=== PATIENT | male | born 1950 | race African-American/Black ===

== ENCOUNTER 2016-07-03 18:58 | Inpatient (IN) | payer MEDICARE ==
--- NOTE | ~2016-07-03 | HP ---
History And Physical [facility] [address] [place]. [address] NAME: PAVEL PERALTA : 48 STATUS : ADM Lisa PAT#: [id number] AGE: 66 ADM/REG DATE : 07/03/16 MR#: [id number] REPORT SERV DATE: 07/04/16 DICTATED BY: MIRNA VILLALOBOS DATE: 07/03/16 REPORT STATUS : Draft TRANSCRIBED BY: MODL DATE: 07/03/16 DATE OF ADMISSION: 07/03/2016 CHIEF COMPLAINT: Fever, cough, nausea, vomiting, and chest pain. HISTORY OF PRESENT ILLNESS: This is a 66-year-old male, who lives by himself and has a history of hypertension, diabetes mellitus, who presents to the Emergency Room at [facility] with the above-mentioned complaint. History is obtained from the patient, his two sisters who are at bedside, and reviewing data available on the [employer] system. Mr. Peralta is a 66-year-old very pleasant patient at the [facility] in [place], [place], who has been doing poorly since last Saturday. So, for the last three days, he has had fever, nausea, vomiting, unable to keep anything down including fluids, has burning chest pain substernally and has also had a cough productive of greenish yellowish sputum. His family decided to bring him in today because he was doing poorly. He appeared dehydrated and they knew he was not going to do well at home. In the emergency room, initial workup revealed leukocytosis with a procalcitonin level of 6.22. He had acute kidney injury, although we do not know if he had chronic kidney disease. He also had intractable nausea and vomiting requiring intravenous antiemetics. He was started on IV fluids and Hospitalist Service was asked to admit him for further evaluation and treatment. At the time of my evaluation, he denied any chest pain at this time, denied any palpitations or orthopnea. He did have a cough productive of greenish to yellowish sputum. Denied any denied any hemoptysis. He denied any night sweats or weight loss recently. No history of recent falls and loss of consciousness. Did have fever, although he did not measure it and did not report any chills. He did have intractable nausea and vomiting, vomitus was mostly clear of food that he ate bilious. He denied any hematemesis. No history of recent diarrhea. He did not have any hematochezia or hematuria recently. He did not have any increased frequency of micturition or burning while passing urine. No other history of recent travel or exposures other than those mentioned above. PAST MEDICAL HISTORY: Significant for history of diabetes mellitus type 2 on insulin and metformin, history of hypertension. According to the family, he was on lisinopril, which was discontinued about a year ago after he had an episode with hypercalcemia. According to them, that issue has resolved. SOCIAL HISTORY: He does not smoke, drink, or use recreational drugs. FAMILY HISTORY: Noncontributory. MEDICATIONS: At home were reviewed by me in the chart today and reordered by me. REVIEW OF SYSTEMS: As in history of present illness. All other systems were reviewed in detail and are quite unremarkable. History And Physical [address] [address] NAME: PAVEL PERALTA : 48 STATUS : ADM Lisa PAT#: [id number] AGE: 66 ADM/REG DATE : 07/03/16 MR#: [id number] REPORT SERV DATE: 07/04/16 DICTATED BY: MIRNA VILLALOBOS DATE: 07/03/16 REPORT STATUS : Draft TRANSCRIBED BY: CARLOS DATE: 07/03/16 PHYSICAL EXAMINATION: GENERAL: This is a pleasant 66-year-old, not in any acute distress. HEENT: His head is atraumatic, normocephalic. He is alert, awake, oriented to time, place, and person. Pupils are equal, reacting to light and accommodating. External ocular muscles are intact. Membranes are moist and pink. Sclera is nonicteric. NECK: Supple with no jugular venous distention, lymphadenopathy, or thyromegaly. LUNGS: Clear to auscultation with no wheezes, rubs, or crackles. HEART: Heart sounds were regular with no murmurs, rubs, or gallops. ABDOMEN: Soft, nontender. Bowel sounds are present. There was no organomegaly. EXTREMITIES: Showed no cyanosis, clubbing, or edema. NEUROLOGIC: Grossly intact. No focal sensory or motor deficits. He was able to move all four extremities. Higher functions appear intact. VITAL SIGNS: His temperature was 99.4, pulse 106, respirations 22 per minute, blood pressure was 144/67, oxygen saturations were 97%, breathing 2 L of oxygen via nasal cannula. LABORATORY DATA: Reviewed on the [employer] system showed a procalcitonin of 6.22. Sodium was 139, potassium 3.8, chloride 102, CO2 of 25, BUN was 41 with a creatinine of 2.37, this was 1.29 in July of 2011. Since then, he has not had any records here. His glucose was 219. AST, ALT, and lipase were within normal limits. His lactate was 1.8. Troponin was 0.05. His CBC showed a white blood cell count of 15,200, hemoglobin was 12.5, hematocrit 37.4, and platelet count was 228,000. His MCV was 83.1. Urinalysis showed 6 wbc's and rare bacteria. Nitrite was negative. Leukocyte esterase was negative. Films of the chest x-ray were reviewed by me on the PACS today and interpreted by me. Per my interpretation, there was normal bony architecture with no cardiomegaly. Lung wahl showed no acute infiltrates or effusions. A 12-lead EKG done in emergency room was reviewed and interpreted by me. There was normal sinus rhythm with a rate of [address] elevations or depressions. IMPRESSION: 1. Febrile illness. 2. Acute bronchitis. 3. Leukocytosis. 4. Possible urinary tract infection. 5. Sepsis. 6. Acute kidney injury versus chronic kidney disease. 7. Intractable nausea and vomiting. 8. Diabetes mellitus with hyperglycemia. 9. Hypertension. 10.Hypercholesterolemia. PLAN: We will admit Mr. Peralta to the Hospitalist Service with telemetry for a 24-hour observation period. We will start him on IV fluids for volume resuscitation and check his chemistry in the morning. We will also start him on empiric IV antibiotics for his presumed urinary tract infection, although I do not see any other signs of infection at this time. We will follow Gram stains, cultures, and proceed accordingly. We will also follow serial troponin levels to rule out any acute coronary syndrome for his chest pain. We will also provide him with Zofran and Phenergan intravenously for nausea and vomiting and see if he History And Physical [address] [address] NAME: PAVEL PERALTA : 48 STATUS : ADM Lisa PAT#: [id number] AGE: 66 ADM/REG DATE : 07/03/16 MR#: [id number] REPORT SERV DATE: 07/04/16 DICTATED BY: MIRNA VILLALOBOS DATE: 07/03/16 REPORT STATUS : Draft TRANSCRIBED BY: CARLOS DATE: 07/03/16 can tolerate any food. He will be on NovoLog insulin per sliding scale for his blood sugar control and we will also check his A1c. For his cough, I will provide him some Robitussin with guaifenesin and continue his supplemental oxygen therapy. We will continue all other medications at this time. Hold his diuretics tonight. We will be re-evaluated in the morning by attending physician. Meanwhile, we will also place him on unfractionated heparin subcutaneously for DVT prophylaxis. Please see today's orders for all the details. I have discussed the above plans with the patient and his two sisters at bedside. Their questions were answered and they are agreeable to the above recommendations. Hospitalist Service will be following Mr. Peralta during his stay here. /CARLOS Mirna Villalobos M.D. / [id number] CC: Junaid Cabrera MD
--- NOTE | ~2016-07-03 | DS ---
Discharge Summary [facility] [address] [place]. [address] NAME: PAVEL FERGUSON : 48 STATUS : DIS IN PAT#: [id number] AGE: 66 ADM/REG DATE : 07/04/16 MR#: [id number] REPORT SERV DATE: 07/06/16 DICTATED BY: KENNEY CUMMINGS DATE: 07/05/16 REPORT STATUS : Draft TRANSCRIBED BY: CARLOS DATE: 07/05/16 ADMISSION DATE: 07/04/2016 DISCHARGE DATE: 07/05/2016 DISCHARGE DIAGNOSES: 1. Systemic inflammatory response syndrome. 2. Acute bronchitis/early pneumonia. 3. Insulin-dependent diabetes mellitus 2. 4. Gastroenteritis, viral. 5. Metabolic acidosis secondary to renal failure. 6. Elevated troponin secondary to renal failure. 7. Acute on chronic kidney disease stage 3. 8. Hypertension. 9. Hyperlipidemia. 10.Glaucoma. 11.Anemia of chronic disease. DISCHARGE MEDICATIONS: Include: 1. Lipitor 40 mg p.o. daily. 2. Cosopt twice a day in both eyes. 3. Insulin aspart 14 subcu at breakfast. 4. Insulin aspart 33 units subcu at lunch. 5. Insulin aspart 30 units subcu supper. 6. Lantus 30 units at bedtime. 7. Toprol-XL 25 mg p.o. daily. 8. Procardia XL 90 mg p.o. daily. 9. DuoNebs 0.5/3 mg inhaled every six hours p.r.n. wheezing. 10.Levaquin 750 mg p.o. q.48 hours. 11.Aspirin 81 mg p.o. daily. 12.Prednisone taper as directed. 13.ProAir HFA 90 mcg one to two puffs every four to six hours p.r.n. 14.Hydrochlorothiazide 12.5 mg p.o. daily. DISPOSITION AND FOLLOWUP: The is patient medically stable for discharge. Follow up with primary care physician in one week. History and physical per initial assessment. DISCHARGE VITALS: Temperature 98, heart rate 77, blood pressure 151/76, respiratory rate 16, O2 saturation 95 on room air. DISCHARGE LABS: WBC 4.7, hemoglobin 11.1, hematocrit 33.4, platelets 198. Sodium 144, potassium 4, chloride 111, bicarb 24, lactate 1.8. BUN 23, creatinine 0.36, glucose 143, troponin 0.06. IMAGING: Chest x-ray PA and lateral, impression, mild elevation right hemidiaphragm with right basilar atelectasis or early infiltrate. Echo results pending. Discharge Summary [facility] [address] [place]. [address] NAME: PAVEL FERGUSON : 48 STATUS : DIS IN PAT#: [id number] AGE: 66 ADM/REG DATE : 07/04/16 MR#: [id number] REPORT SERV DATE: 07/06/16 DICTATED BY: KENNEY CUMMINGS DATE: 07/05/16 REPORT STATUS : Draft TRANSCRIBED BY: CARLOS DATE: 07/05/16 HOSPITAL COURSE: This is a 66-year-old man with past medical history of insulin-dependent diabetes type 2, chronic kidney disease stage 3, comes into the ED complaining of fever, cough, nausea, vomiting, and chest pain. The patient was evaluated, had evidence of SIRS without evidence of sepsis, as no clear infection noted. The patient was admitted and started on antibiotics. The patient was started on IV fluids. Renal function back at baseline on the day of discharge with IV fluids. Troponins were cycled and stayed at 0.06 most likely secondary to renal failure. No complaints of chest pain. 2D echo pending rule out any evidence of wall motion abnormality. By second day of admission, leukocytosis has resolved. The patient did have some evidence of acute bronchitis early pneumonia. Kept on antibiotics. DuoNeb started. By second day of admission, the patient's clinical status much improved. The patient wanted to go home. SIRS resolved. Metabolic acidosis resolved with improvement of renal failure and sodium bicarb tablets. EKG did not have any evidence of acute coronary syndrome. The patient medically stable for discharge. Vitals stable. Discharge on oral antibiotics. DuoNebs q.6 hours p.r.n./ProAir HFA p.r.n. wheezing. Prednisone taper as directed. The patient instructed to take all medications as described above. Follow up with primary care physician in one week. Once echo reviewed and no wall motion abnormality, the patient will be medically stable for discharge. Total time for discharge planning, 35 minutes. ADRIÁN/CARLOS Junaid Cabrera MD / [id number] CC: Junaid Cabrera MD
[2016-07-03 14:52] LABS: BASOPHILS 0.1 %; BASOPHILS ABSOLUTE 0.02 10/3/uL (0.0-0.16); EOSINOPHILS 0 %; ER CBC TAT 0 Hrs 11 Mins; HEMATOCRIT 37.4 % (40.0-51.0); HEMOGLOBIN 12.5 g/dL (13.6-17.8); IMMATURE GRANULOCYTES 0.2 %; IMMATURE GRANULOCYTES ABSOLUTE 0.03 10/3/uL (0.0-0.11); LYMPHOCYTES 11.8 %; MEAN CORPUS HGB CONC 33.4 g/dL (32.0-36.0); MEAN CORPUSCULAR HEMOGLOB 27.8 pg (26.0-34.0); MEAN CORPUSCULAR VOLUME 83.1 fL (80-100); MEAN PLATELET VOLUME 10.4 fL (9.2-13.0); MONOCYTES 5.4 %; MONOCYTES ABSOLUTE 0.82 10/3/uL (0.21-1.20); NEUTROPHILS 82.5 %; NEUTROPHILS ABSOLUTE 12.54 10/3/uL (2.02-8.40); PLATELET COUNT 228 10/3/uL (150-400); RBC DISTRIBUTION WIDTH 14.6 % (12.0-16.0); WHITE BLOOD CELLS 15.2 10/3/uL (4.5-10.5)
[2016-07-03 14:53] LABS: MANUAL DIFF NO %
[2016-07-03 15:01] LABS: A/G RATIO 0.8 (0.7-1.9); ALBUMIN 3.5 G/DL (3.5-5.0); ALKALINE PHOSPHATASE 59 U/L (45-117); BUN (BLOOD UREA NITROGEN) 41 MG/DL (6-23); CALCIUM, SERUM 8.7 MG/DL (8.5-10.4); CHLORIDE, SERUM 102 MMOL/L (96-112); CO2 (CARBON DIOXIDE) 25 MMOL/L (24-34); CREATININE 2.37 MG/DL (0.70-1.30); GFR AFRICAN AMERICAN 32 ML/MIN (>=60); GFR NON AFRICAN AMERICAN 27 ML/MIN (>=60); GLOBULIN 4.6 G/DL (2.5-4.1); GLUCOSE, SERUM 219 MG/DL (60-99); SGOT(AST) 41 U/L (5-40); SGPT(ALT) 36 U/L (5-65); SODIUM, SERUM 139 MMOL/L (135-148); TOTAL BILIRUBIN 0.5 MG/DL (0-1.2); TOTAL PROTEIN 8.1 G/DL (6.0-8.5)
[2016-07-03 15:02] LABS: POTASSIUM, SERUM 3.8 MMOL/L (3.5-5.3)
[2016-07-03 18:47] LABS: ASCORBIC ACID (UR NOT ORDER) NEG (NEG); BILIRUBIN, URINE NEGATIVE (NEG); ER URINALYSIS TAT 0 Hrs 13 Mins; KETONE, URINE NEGATIVE (NEG); LEUKOCYTE ESTERASE(NOT OR NEG (NEG); NITRITE (URINE) NEG (NEG); WBC (NOT ORDERED) (RFLEX) 6 (0-5)
[~2016-07-03 18:58] MED LIST: ASAB PO; COSOPT OPH; GLUCOPHAGE1000 MG PO; GLUCOTRO10 PO; HYDROCHLOROT25 MG PO; LIPITOR80 MG PO; NOVOLOG; NXL9 PO; PRIN20 PO; ZOCOR20 PO
[2016-07-03 19:58] LABS: TROPONIN I 0.05 NG/ML (<0.05)
[2016-07-03 20:28] LABS: PROCALCITONIN 6.22 ng/mL (<0.5)
[2016-07-03] MEDS ORDERED: NOVOLOG SC ×3 (20:43)
[2016-07-03] MEDS ORDERED: LIPITOR40 PO (20:44)
[2016-07-03] MEDS ORDERED: ASAB PO (20:44)
[2016-07-03] MEDS ORDERED: LANTUS SC (20:44)
[2016-07-03] MEDS ORDERED: HCTZ12.5 PO (20:45)
[2016-07-03] MEDS ORDERED: COSOPT OPH (20:45)
[2016-07-03] MEDS ORDERED: NXL9 PO (20:45)
[2016-07-03] MEDS ORDERED: GLUCOPHAGE1000 MG PO (20:46)
[2016-07-04 05:06] LABS: BASOPHILS 0.1 %; BASOPHILS ABSOLUTE 0.01 10/3/uL (0.0-0.16); EOSINOPHILS 0.1 %; EOSINOPHILS ABSOLUTE 0.01 10/3/uL (0.0-0.53); HEMATOCRIT 33.7 % (40.0-51.0); HEMOGLOBIN 11.1 g/dL (13.6-17.8); IMMATURE GRANULOCYTES 0.1 %; IMMATURE GRANULOCYTES ABSOLUTE 0.01 10/3/uL (0.0-0.11); LYMPHOCYTES 15.7 %; LYMPHOCYTES ABSOLUTE 1.39 10/3/uL (0.67-4.30); MEAN CORPUS HGB CONC 32.9 g/dL (32.0-36.0); MEAN CORPUSCULAR HEMOGLOB 28.2 pg (26.0-34.0); MEAN CORPUSCULAR VOLUME 85.5 fL (80-100); MEAN PLATELET VOLUME 10.5 fL (9.2-13.0); MONOCYTES 5.4 %; MONOCYTES ABSOLUTE 0.48 10/3/uL (0.21-1.20); NEUTROPHILS 78.6 %; NEUTROPHILS ABSOLUTE 6.98 10/3/uL (2.02-8.40); PLATELET COUNT 196 10/3/uL (150-400); RBC DISTRIBUTION WIDTH 14.4 % (12.0-16.0); RED CELL COUNT 3.94 10/6/uL (4.7-6.1)
[2016-07-04 05:10] LABS: MANUAL DIFF NO %; WHITE BLOOD CELLS 8.9 10/3/uL (4.5-10.5)
[2016-07-04 05:27] LABS: CALCIUM, SERUM 8.1 MG/DL (8.5-10.4); CHLORIDE, SERUM 110 MMOL/L (96-112); CO2 (CARBON DIOXIDE) 23 MMOL/L (24-34); PHOSPHORUS, SERUM 2.9 MG/DL (2.5-4.5); POTASSIUM, SERUM 3.9 MMOL/L (3.5-5.3); SODIUM, SERUM 144 MMOL/L (135-148)
[2016-07-04 05:29] LABS: BUN (BLOOD UREA NITROGEN) 37 MG/DL (6-23); CREATININE 1.74 MG/DL (0.70-1.30); GFR AFRICAN AMERICAN 46 ML/MIN (>=60); GFR NON AFRICAN AMERICAN 40 ML/MIN (>=60); GLUCOSE, SERUM 103 MG/DL (60-99)
[2016-07-04 05:30] LABS: TROPONIN I 0.06 NG/ML (<0.05)
[2016-07-05 05:27] LABS: BASOPHILS 0.6 %; BASOPHILS ABSOLUTE 0.03 10/3/uL (0.0-0.16); EOSINOPHILS 0 %; HEMATOCRIT 33.4 % (40.0-51.0); HEMOGLOBIN 11.1 g/dL (13.6-17.8); IMMATURE GRANULOCYTES 0.2 %; IMMATURE GRANULOCYTES ABSOLUTE 0.01 10/3/uL (0.0-0.11); LYMPHOCYTES 30.7 %; LYMPHOCYTES ABSOLUTE 1.44 10/3/uL (0.67-4.30); MEAN CORPUS HGB CONC 33.2 g/dL (32.0-36.0); MEAN CORPUSCULAR HEMOGLOB 28.6 pg (26.0-34.0); MEAN CORPUSCULAR VOLUME 86.1 fL (80-100); MONOCYTES ABSOLUTE 0.42 10/3/uL (0.21-1.20); NEUTROPHILS 59.5 %; NEUTROPHILS ABSOLUTE 2.79 10/3/uL (2.02-8.40); PLATELET COUNT 198 10/3/uL (150-400); RBC DISTRIBUTION WIDTH 14.3 % (12.0-16.0); RED CELL COUNT 3.88 10/6/uL (4.7-6.1)
[2016-07-05 05:28] LABS: CALCIUM, SERUM 7.9 MG/DL (8.5-10.4); CHLORIDE, SERUM 111 MMOL/L (96-112); CO2 (CARBON DIOXIDE) 24 MMOL/L (24-34); CREATININE 1.36 MG/DL (0.70-1.30); GFR AFRICAN AMERICAN 62 ML/MIN (>=60); GFR NON AFRICAN AMERICAN 53 ML/MIN (>=60); SODIUM, SERUM 144 MMOL/L (135-148)
[2016-07-05 05:31] LABS: MANUAL DIFF NO %; WHITE BLOOD CELLS 4.7 10/3/uL (4.5-10.5)
[2016-07-05 05:34] LABS: BUN (BLOOD UREA NITROGEN) 23 MG/DL (6-23); GLUCOSE, SERUM 58 MG/DL (60-99)
[2016-07-05] MEDS ORDERED: TOPXL25 PO (17:35)
[2016-07-05] MEDS ORDERED: DUONEB INH (17:39)
[2016-07-05] MEDS ORDERED: LEVEMIR SC (17:40)
[2016-07-05] MEDS ORDERED: LEVAQUIN750 MG PO (17:43)
[2016-07-05] MEDS ORDERED: PROAIR HFA INH (17:44)
[2016-07-05] MEDS ORDERED: STERAPRED DS10 MG (17:47)
== END 2016-07-05 18:40 | disposition home or self-care (01) | DRG 682 ==
LOC: ER 18:58 → CDU1 21:01
PROVIDERS: Emergency Medicine; Internal Medicine; Internal Medicine Pulmonary Disease
DX: N17.9 Acute kidney failure, unspecified (principal); J18.9 Pneumonia, unspecified organism; E87.2 Acidosis; E11.649 Type 2 diabetes mellitus with hypoglycemia without coma; E11.22 Type 2 diabetes mellitus with diabetic chronic kidney disease; J44.0 Chronic obstructive pulmonary disease with (acute) lower respiratory infection; E86.0 Dehydration; E11.65 Type 2 diabetes mellitus with hyperglycemia; J20.9 Acute bronchitis, unspecified; I12.9 Hypertensive chronic kidney disease with stage 1 through stage 4 chronic kidney disease, or unspecified chronic kidney disease; E78.00 Pure hypercholesterolemia, unspecified; N18.3 Chronic kidney disease, stage 3 (moderate); H40.9 Unspecified glaucoma; D63.8 Anemia in other chronic diseases classified elsewhere; E78.5 Hyperlipidemia, unspecified; Z79.4 Long term (current) use of insulin
CPT/HCPCS: 71020; 80048; 80053; 81001; 82962; 83036; 83605; 83690; 83735; 84100; 84145; 84484; 85025; 87040; 93005; 93306; 94640; 96374; 96375; 97161-GP; 97165-GO; 99285; A9270-GY; G8978-CJ-GP; G8980-CI-GP; G8987-CJ-GO; G8988-CJ-GO; G8989-CJ-GO; J2405